=== PATIENT | male | born 1980 | race Caucasian/White ===

== ENCOUNTER → 2022-03-23 | Outpatient (CLI) | payer SELFPAY | END | disposition home or self-care (01) | DX: Z00.00 Encounter for general adult medical examination without abnormal findings (principal); R53.83 Other fatigue ==

== ENCOUNTER 2023-06-16 16:41 | Observation (INO) | payer MEDICARE ==
[~2023-06-16] VITALS: Ht 170.2 cm; Wt 226.8 kg
[2023-06-16 18:42] LABS: BASOPHILS ABSOLUTE AUTO 0.06 K/mm3 (0.00-0.23); BASOPHILS PERCENT AUTO 0 % (0-2); EOSINOPHILS ABSOLUTE AUTO 0.16 K/mm3 (0.00-0.68); EOSINOPHILS PERCENT AUTO 1 % (0-6); Hemoglobin 14.2 g/dL (13.5-17.5); IMMATURE GRAN PERCENT AUTO 1 % (0-1); LYMPHOCYTES ABSOLUTE AUTO 1.68 K/mm3 (0.84-5.20); LYMPHOCYTES PERCENT AUTO 11 % (21-46); MONOCYTES ABSOLUTE AUTO 0.86 K/mm3 (0.16-1.47); MONOCYTES PERCENT AUTO 6 % (4-13); Mean Corpuscular HGB 26.9 pg (26.0-34.0); Mean Corpuscular HGB Conc 32.3 g/dL (31.5-36.5); Mean Corpuscular Volume 84 fL (80-100); Mean Platelet Volume 9.5 fL (9.1-12.4); NEUTROPHILS ABSOLUTE AUTO 12.13 K/mm3 (1.96-9.15); NEUTROPHILS PERCENT AUTO 81 % (41-73); Platelet Count 365 K/mm3 (150-400); RDW Coefficient Variation 13.5 % (11.7-14.2); RDW Standard Deviation 41.6 fL (35.1-46.3); Red Blood Cell Count 5.27 M/mm3 (4.30-5.90); White Blood Cell Count 14.99 K/mm3 (4.00-11.30)
[2023-06-16 18:50] LABS: Source, Urine Clean Catch
[2023-06-16 18:55] LABS: Appearance, Urine Clear (Clear); Bilirubin, Urine Neg (Neg); Blood, Urine Neg (Neg); Color, Urine Yellow (P-Yellow); Glucose Qualitative, Urine Neg (Neg); Ketones, Urine Neg (Neg); Leukocyte Esterase, Urine Neg (Neg); Nitrite, Urine Neg (Neg); Protein, Urine Neg (Neg); Specific Gravity, Urine 1.015 (1.003-1.022); Urobilinogen, Urine NORM (Normal)
[2023-06-16 19:07] LABS: U Amphetamine Screen Not Detected; U Barbituate Screen Not Detected; U Benzodiazapine Screen Not Detected; U Buprenorphine Screen Not Detected; U Cannabinoids Screen Not Detected; U Cocaine Screen Not Detected; U Methadone Screen Not Detected; U Methamphetamine Screen Not Detected; U Opiates Screen Not Detected; U Oxycodone Screen Not Detected; U Phencyclidine Screen Not Detected
[2023-06-16 19:11] LABS: Ethanol (Alcohol), Blood, Med 3 mg/dL; Thyroxine (T4) 8.6 ug/dL (4.5-12.1)
[2023-06-16 19:12] LABS: Alanine Aminotransfer (ALT/SGP 37 U/L (12-78); Albumin, Blood 3.1 g/dL (3.4-5.0); Albumin/Globulin Ratio 0.6 (0.8-1.8); Alk Phos 122 U/L (50-136); Anion Gap 1 mmol/L (6-16); Aspartate Aminotrans (AST/SGOT 22 U/L (12-37); Bilirubin, Total 0.2 mg/dL (0.1-1.0); Blood Urea Nitrogen 13 mg/dL (8-24); Bun/Creatinine Ratio 14.9 (12.0-20.0); CO2, Blood 29 mmol/L (21-32); Calcium, Blood 9.3 mg/dL (8.5-10.1); Chloride, Blood 105 mmol/L (98-108); Creatinine, Blood 0.87 mg/dL (0.60-1.20); Globulin, Blood 5.1 g/dL (2.2-4.0); Glomerular Filtration Rate 109 (60-); Glucose, Blood 186 mg/dL (70-99); Potassium, Blood 4.5 mmol/L (3.5-5.5); Salicylate <1.7 mg/dL (2.8-20.0); Sodium, Blood 135 mmol/L (136-145); Total Protein, Blood 8.2 g/dL (6.4-8.2)
[2023-06-16 19:18] LABS: Acetaminophen, Random <2.0 ug/mL (10.0-30.0)
[2023-06-16] MEDS ORDERED: [UNRECOGNIZED DRUG - CODE] PO (20:46)
[2023-06-16] MEDS ORDERED: QUETIAPINE FUM10011 PO (20:46)
[2023-06-16] MEDS ORDERED: FUROSEMIDE20 MG PO (20:46)
[2023-06-16] MEDS ORDERED: CLONAZEPAM1 MG PO (20:47)
[2023-06-16] MEDS ORDERED: Venlafaxine HCl75 M1 PO (20:47)
[2023-06-16] MEDS ORDERED: OMEPRAZOLE MAGN20 M1 PO (20:47)
[2023-06-16] MEDS ORDERED: METFORMIN HCL500 M3 PO (20:48)
[2023-06-16] MEDS ORDERED: LISI20 PO (20:48)
[2023-06-16] MEDS ORDERED: HYDCHL25 PO (20:48)
[2023-06-16] MEDS ORDERED: Inderal40 MG PO (20:49)
[2023-06-16] MEDS ORDERED: Ativan1 MG PO (21:08)
[2023-06-16] MEDS ORDERED: CLON.2 PO (21:08)
[2023-06-16] MEDS ORDERED: MetFORMIN HCl 500 mg PO ONE (21:35)
[2023-06-16] MEDS ORDERED: Omeprazole 20 MG CapCR PO ONE (21:35)
[2023-06-16] MEDS ORDERED: QUEtiapine Fumarate 100 MG Tab PO ONE (21:35)
[2023-06-16] MEDS ORDERED: Propranolol HCL 20 MG TAB PO ONE (21:35)
[2023-06-16] MEDS ORDERED: OXcarbazepine 300 MG Tab PO ONE (21:35)
[2023-06-16] MEDS ORDERED: CloNIDine 0.1 MG Tab PO ONE (21:35)
[2023-06-17] MEDS ORDERED: CloNIDine 0.1 MG Tab PO PRN (11:50)
[2023-06-17] MEDS ORDERED: ClonazePAM 0.5 MG Tab PO PRN (11:55)
[2023-06-17] MEDS ORDERED: OXcarbazepine 300 MG Tab PO SCH (12:00)
[2023-06-17] MEDS ORDERED: MetFORMIN HCl 500 mg PO SCH (12:00)
[2023-06-17] MEDS ORDERED: Lisinopril 20 MG Tab PO SCH (12:00)
[2023-06-17 16:11] LABS: Cholesterol 219 mg/dL (50-200); HDL Cholesterol 55 mg/dL (>39); LDL/HDL RATIO 2.5; Low Density Lipoprotein Chol 138 mg/dL (0-110); Triglycerides 130 mg/dL (30-160); Very Low Density Lipoprot Chol 26 mg/dL (6-32)
[2023-06-17] MEDS ORDERED: Omeprazole 20 MG CapCR PO SCH (16:30)
[2023-06-17] MEDS ORDERED: QUEtiapine Fumarate 100 MG Tab PO SCH (21:00)
[2023-06-17 23:16] VITALS: BP 147/77
[2023-06-18] MEDS ORDERED: Ondansetron 8 MG SoluTab SL ONE (07:30)
[2023-06-18] MEDS ORDERED: Lisinopril 20 MG Tab PO SCH (09:00)
[2023-06-18] MEDS ORDERED: Furosemide 20 MG Tab PO SCH (09:00)
[2023-06-18] MEDS ORDERED: Venlafaxine HCl 75 MG CapCR PO SCH ×2 (09:00)
== END 2023-06-18 10:46 | disposition home or self-care (01) ==
LOC: ER 16:41 → EOR 16:42
PROVIDERS: Physician Assistant; Student in an Organized Health Care Education/Training Program; ADMIT Student in an Organized Health Care Education/Training Program
DX: F33.2 Major depressive disorder, recurrent severe without psychotic features (principal); F60.3 Borderline personality disorder; Z88.0 Allergy status to penicillin; E10.9 Type 1 diabetes mellitus without complications
CPT/HCPCS: 36415; 80053; 80061; 81003; 84436; 85025; 93005; 93010; 94660; 99285-25; A9270; G0378; G0480

== ENCOUNTER 2024-11-16 00:13 | Inpatient (IN) | payer MEDICARE ==
[2024-11-16] VITALS (60 sets, daily range): BP systolic 130–181; BP diastolic 67–110
[~2024-11-16] VITALS: Ht 175.3 cm; Wt 203.0 kg
[~2024-11-16 00:13] MED LIST: Ativan1 MG PO; CLON.2 PO; CLONAZEPAM1 MG PO; FUROSEMIDE20 MG PO; HYDCHL25 PO; Inderal40 MG PO; LISI20 PO; METFORMIN HCL500 M3 PO; OMEPRAZOLE MAGN20 M1 PO; QUETIAPINE FUM10011 PO; Venlafaxine HCl75 M1 PO; [UNRECOGNIZED DRUG - CODE] PO
[2024-11-16] MEDS ORDERED: NS 1,000 ML IV SCH (00:25)
[2024-11-16 00:36] LABS: BASOPHILS ABSOLUTE AUTO 0.07 K/mm3 (0.00-0.23); BASOPHILS PERCENT AUTO 1 % (0-2); EOSINOPHILS ABSOLUTE AUTO 0.19 K/mm3 (0.00-0.68); EOSINOPHILS PERCENT AUTO 1 % (0-6); Hematocrit 41.2 % (37.0-53.0); Hemoglobin 13.3 g/dL (13.5-17.5); IMMATURE GRAN ABSOLUTE AUTO 0.05 K/mm3 (0.00-0.10); IMMATURE GRAN PERCENT AUTO 0 % (0-1); LYMPHOCYTES ABSOLUTE AUTO 3.18 K/mm3 (0.84-5.20); LYMPHOCYTES PERCENT AUTO 22 % (21-46); MONOCYTES ABSOLUTE AUTO 1.14 K/mm3 (0.16-1.47); MONOCYTES PERCENT AUTO 8 % (4-13); Mean Corpuscular HGB Conc 32.3 g/dL (31.5-36.5); Mean Corpuscular Volume 85 fL (80-100); NEUTROPHILS ABSOLUTE AUTO 9.85 K/mm3 (1.96-9.15); NEUTROPHILS PERCENT AUTO 68 % (41-73); NRBC ABSOLUTE 0.00 K/mm3 (0.00-0.02); NRBC Auto 0.0 /100 WBC (0.0-0.2); Platelet Count 317 K/mm3 (150-400); RDW Coefficient Variation 13.0 % (11.7-14.2); RDW Standard Deviation 40.3 fL (35.1-46.3)
[2024-11-16 00:58] LABS: Ethanol (Alcohol), Blood, Med <3 mg/dL; Salicylate <1.7 mg/dL (2.8-20.0)
[2024-11-16 01:01] LABS: Alanine Aminotransfer (ALT/SGP 25 U/L (12-78); Albumin, Blood 3.1 g/dL (3.4-5.0); Albumin/Globulin Ratio 0.7 (0.8-1.8); Anion Gap 8 mmol/L (3-11); Aspartate Aminotrans (AST/SGOT 14 U/L (12-37); Bilirubin, Total 0.2 mg/dL (0.1-1.0); Blood Urea Nitrogen 12 mg/dL (8-24); CO2, Blood 28 mmol/L (21-32); Calcium, Blood 8.7 mg/dL (8.5-10.1); Chloride, Blood 105 mmol/L (98-108); Creatinine, Blood 0.83 mg/dL (0.60-1.20); Globulin, Blood 4.3 g/dL (2.2-4.0); Glucose, Blood 175 mg/dL (70-99); Potassium, Blood 4.3 mmol/L (3.5-5.5); Sodium, Blood 137 mmol/L (136-145); Total Protein, Blood 7.4 g/dL (6.4-8.2)
[2024-11-16 01:02] LABS: Acetaminophen, Random <2.0 ug/mL (10.0-30.0)
[2024-11-16] MEDS ORDERED: FentaNYL Citrate 50 MCG/ML 2 ML Injection IV SCH (01:15)
[2024-11-16] MEDS ORDERED: Midazolam HCL 50 MG in NS 40 ML IV PRN (01:20)
[2024-11-16] MEDS ORDERED: Ipratropium/Albuterol SulF 2.5-0.5MG/3 ML Amp INH PRN (02:20)
[2024-11-16 02:25] LABS: Source, Urine Clean Catch
[2024-11-16] MEDS ORDERED: FentaNYL Citrate 50 MCG/ML 2 ML Injection IV PRN (02:25)
[2024-11-16 02:35] LABS: Glucose Qualitative, Urine Neg (Neg); Ketones, Urine 1+ (Neg); Leukocyte Esterase, Urine Neg (Neg); Protein, Urine 2+ (Neg); Specific Gravity, Urine 1.020 (1.003-1.022); Urobilinogen, Urine NORM (Normal)
[2024-11-16 02:50] LABS: U Amphetamine Screen Not Detected; U Barbituate Screen Not Detected; U Benzodiazapine Screen DETECTED; U Buprenorphine Screen Not Detected; U Cannabinoids Screen Not Detected; U Cocaine Screen Not Detected; U Methadone Screen Not Detected; U Methamphetamine Screen Not Detected; U Opiates Screen Not Detected; U Oxycodone Screen Not Detected; U Phencyclidine Screen Not Detected
[2024-11-16 02:53] LABS: Bilirubin, Urine 2+ (Neg)
[2024-11-16 02:54] LABS: Color, Urine Yellow (P-Yellow); White Blood Cells, Urine 0-2 /hpf (0-5)
[2024-11-16 03:02] LABS: Calcium, Ionized (POC) 1.25 mmol/L (1.10-1.46); Chloride (POC) 101 mmol/L (98-108); Creatinine (POC) 0.9 mg/dL (0.8-1.3); Glucose (ISTAT POC) 176 mg/dL (70-99); Hematocrit (POC) 42.0 % (41.0-53.0); Hemoglobin (POC) 14.3 g/dL (13.5-17.5); Potassium (POC) 4.3 mmol/L (3.5-5.5); Sodium (POC) 139 mmol/L (135-148); Total CO2 (POC) 27 mmol/L (21-32)
[2024-11-16 03:04] LABS: pH Blood Venous 7.40 (7.34-7.37)
[2024-11-16 05:28] LABS: BASOPHILS ABSOLUTE AUTO 0.06 K/mm3 (0.00-0.23); BASOPHILS PERCENT AUTO 0 % (0-2); EOSINOPHILS ABSOLUTE AUTO 0.08 K/mm3 (0.00-0.68); EOSINOPHILS PERCENT AUTO 1 % (0-6); Hematocrit 40.7 % (37.0-53.0); Hemoglobin 13.5 g/dL (13.5-17.5); IMMATURE GRAN ABSOLUTE AUTO 0.03 K/mm3 (0.00-0.10); IMMATURE GRAN PERCENT AUTO 0 % (0-1); LYMPHOCYTES ABSOLUTE AUTO 2.42 K/mm3 (0.84-5.20); LYMPHOCYTES PERCENT AUTO 17 % (21-46); MONOCYTES ABSOLUTE AUTO 0.94 K/mm3 (0.16-1.47); MONOCYTES PERCENT AUTO 7 % (4-13); Mean Corpuscular HGB Conc 33.2 g/dL (31.5-36.5); Mean Corpuscular Volume 83 fL (80-100); NEUTROPHILS ABSOLUTE AUTO 10.73 K/mm3 (1.96-9.15); NEUTROPHILS PERCENT AUTO 75 % (41-73); NRBC ABSOLUTE 0.00 K/mm3 (0.00-0.02); NRBC Auto 0.0 /100 WBC (0.0-0.2); Platelet Count 335 K/mm3 (150-400); RDW Coefficient Variation 13.0 % (11.7-14.2); RDW Standard Deviation 39.9 fL (35.1-46.3)
--- NOTE | 2024-11-16 05:57 | NUR ---
SPOKE WITH KEVIN WITH POISON CONTROL AND UPDATED HER.
[2024-11-16 05:59] LABS: Alanine Aminotransfer (ALT/SGP 41.0 U/L (12-78); Albumin, Blood 3.1 g/dL (3.4-5.0); Albumin/Globulin Ratio 0.7 (0.8-1.8); Anion Gap 7.0 mmol/L (3-11); Aspartate Aminotrans (AST/SGOT 33.0 U/L (12-37); Bilirubin, Total 0.5 mg/dL (0.1-1.0); Blood Urea Nitrogen 10.0 mg/dL (8-24); CO2, Blood 30.0 mmol/L (21-32); Calcium, Blood 8.6 mg/dL (8.5-10.1); Chloride, Blood 104.0 mmol/L (98-108); Creatinine, Blood 0.78 mg/dL (0.60-1.20); Globulin, Blood 4.3 g/dL (2.2-4.0); Glucose, Blood 164.0 mg/dL (70-99); Magnesium, Blood 1.8 mg/dL (1.6-2.4); Potassium, Blood 4.2 mmol/L (3.5-5.5); Sodium, Blood 137.0 mmol/L (136-145); Total Protein, Blood 7.4 g/dL (6.4-8.2)
[2024-11-16] MEDS ORDERED: Pantoprazole Sodium 40 MG Injection IV SCH (06:00)
--- NOTE | 2024-11-16 06:17 | NUR ---
SHIFT SUMMARY: PT ARRIVED FROM THE ED INTUBATED. WHEN HE ARRIVED HE WAS AGITATED AND ALERT. HE WAS TREATED FOR PAIN AND SEDATED. HE HAD A CHISHOLM IN PLACE, DRAINING TO GRAVITY. PT REMAINED IN A SINUS RHYTHM IN 60S-70S, BP STABLE.
[2024-11-16] MEDS ORDERED: Cetylpyridinium Chloride 1 EA MISC MT SCH (08:00)
[2024-11-16] MEDS ORDERED: Enoxaparin 40 MG/0.4 ML SYR SC SCH (09:00)
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
[2024-11-16] MEDS ORDERED: Hydrogen Peroxide 1.5 % Solution MT SCH (12:00)
[2024-11-16] MEDS ORDERED: Etomidate 2MG / ML 10ML Vial IV ONE (12:02)
[2024-11-16] MEDS ORDERED: Rocuronium Bromide 10 MG/ML 5ML Injection IV ONE (12:02)
[2024-11-16] MEDS ORDERED: Midazolam HCl 1MG / ML 2ML Vial IV ONE (12:02)
[2024-11-16] MEDS ORDERED: ZESTRIL40 MG PO (12:53)
[2024-11-16] MEDS ORDERED: OMEPRAZOLE20 M2 PO (12:56)
[2024-11-16] MEDS ORDERED: HydrALAZINE HCl 20 MG / ML 1ML Vial IV PRN (13:00)
--- NOTE | 2024-11-16 17:02 | NUR ---
END OF SHIFT NOTE: PT HAS REMAINED INTUBATED & SEDATED THIS SHIFT. PROPOFOL GTT FOR SEDATION, SEE CC FLOWSHEET FOR TITRATIONS. RASS -2 THIS AM & EARLY PM ON 10MCG/KG/MIN; AT APPROX 1430, RASS +3 & PT ATTEMPTING TO SELF EXTUBATE, THRASHING IN BED. PROPOFOL GTT INCREASED TO 30MCG/KG/MIN & FENTANYL IVP FOR AGITATION PER EMAR. RASS -3 AT THIS TIME. HR 60-70'S, SINUS RHYTHM ON MONITOR. SBP UP TO 180'S, HYDRALAZINE IVP ADMINISTERED PER EMAR. SPO2 >90% ON VENT; SETTINGS AC/VC 18/480/5/30%. AFEBRILE. CHISHOLM CATH REMAINS PATENT & DRAINING URINE TO GRAVITY; 610ML OUTPUT OF TIME OF THIS NOTE. NO BM'S. PER DR. SUMNER, NO OGT AT THIS TIME. PT TRANSFERRED TO BARIATRIC BED THIS AFTERNOON, REPOSITIONED Q2HRS & PRN. Q4 ORAL CARE TO SUCTION. PG TO ZHENG, PIV TO LAC, PIV TO L HAND. FAMILY AT BEDSIDE, UPDATED ON PLAN OF CARE.
[2024-11-17] VITALS (43 sets, daily range): BP systolic 140–183; BP diastolic 75–150
--- NOTE | 2024-11-17 05:52 | NUR ---
SHIFT SUMMARY: MINIMAL CHANGES OVERNIGHT. PT HYPERTENSIVE, BUT NEVER HIGH ENOUGH FOR ADDITIONAL DOSE OF HYDRALAZINE. REMAINS IN A SINUS RHYTHM 60S-70S. CHISHOLM PATENT WITH ADEQUATE URINE OUTPUT. PT REMAINS SEDATE WITH PROPOFOL. HE HAS REQUIRED AN INCREASE IN PEEP AND FIO2 TO MAINTIAN SPO2 >90%
--- NOTE | 2024-11-17 09:36 | NUR ---
AM NOTE: THIS RN ASSUMED CARE OF PT AT APPROX 0700, BEDSIDE REPORT FROM NOC RN. PT INTUBATED & SEDATED W/ PROPOFOL GTT. RASS -3 ON 25MCG/KG/MIN, TITRATED TO 20MCG/KG/MIN W/ RASS-2. PT ABLE TO FOLLOW SOME COMMANDS, OPENS EYES. PUPILS EQUAL & REACTIVE, GAG PRESENT. HR 70-80'S, SINUS RHYTHM W/ 1ST DEG AVB ON MONITOR. SBP 160-170'S, MAP >65. SPO2 >90% ON VENT, SETTINGS AC/VC 18/480/10/35%. AFEBRILE. CHISHOLM CATH IN PLACE DRAINING YELLOW URINE TO GRAVITY. Q30MIN REPOSITIONING W/ BARIATRIC AIR BED. SWR IN PLACE TO BUE FOR PT SAFETY. PT'S MOTHER, CHANCE, UPDATED ON PLAN OF CARE VIA PHONE THIS AM. CHANCE STATES SHE PLANS TO COME VISIT EAMON SHORTLY.
[2024-11-17] MEDS ORDERED: CefTRIAXone Sodium 1,000 MG in NS 100 ML IV SCH (10:59)
[2024-11-17] MEDS ORDERED: NS 250 ML IV PRN (11:10)
[2024-11-17] MEDS ORDERED: Haloperidol Lactate Inj. 5 MG/ML Injection IV PRN (14:50)
--- NOTE | 2024-11-17 15:44 | NUR ---
UPDATE: THIS RN AT PT'S BEDSIDE THIS AFTERNOON DUE TO VENT ALARMS. PT AGITATED, PULLING AT SOFT WRIST RESTRAINTS & ATTEMPTING TO BEND NECK TO HAND TO PULL OUT ETT. SWING RIDE OPERATOR TO BEDSIDE. CALL PLACED TO DR. SUMNER, PROPOFOL GTT RESTARTED. PT REMAINS AGITATED, PULLING AT RESTRAINTS, THRASHING IN BED. RASS +3/+4. DR. SUMNER W/ ORDERS TO EXTUBATE. SEDATION OFF, PT EXTUBATED BY RT AT 1447. RESTRAINTS DISCONTINUED AT 1450. PT TRANSITIONED TO HFNC THEN TO BIPAP. PT UNABLE TO TOLERATE BIPAP, PULLING IT OFF HIS FACE AND SAYING "FUCK YOU" REPEATEDLY TO RT AT BEDSIDE. EDUCATION PROVIDED, PT CONTINUES TO REMAIN NONCOMPLIANT W/ BIPAP. TRANSITIONED BACK TO 11L HFNC W/ SPO2 90-92%. OTHER VSS ON MONITOR. PSYCH CONSULTED THIS AFTERNOON & 1:1 SITTER AT BEDSIDE. ROOM MITIGATED PER HIGH RISK SI PRECAUTIONS. THIS RN SPOKE W/ PT REGARDING CURRENT SITUATION. PT STATES THAT HE DOES REMEMBER TAKING PILLS AT HOME IN AN ATTEMPT TO KILL HIMSELF. WHEN ASKED IF HE HAS A DESIRE TO HARM HIMSELF AT THIS TIME, PT STATES "I'M NOT SURE." PT AGREEABLE TO CARE AT THIS TIME, EXPRESSES DESIRE FOR FAMILY VISIT. THIS RN SPOKE W/ PT'S MOTHER, CHANCE, TO PROVIDE AN UPDATE. CHANCE STATES THAT SHE PLANS TO COME VISIT THIS AFTERNOON IN ADDITION TO SOME OTHER FAMILY MEMBERS. PT IS AGREEABLE TO THIS. PT DENIES PAIN OTHER THAN THROAT DISCOMFORT FOLLOWING EXTUBATION. EXPRESSING DESIRE FOR PO INTAKE; MOUTH MOISTURIZER PROVIDED.
--- NOTE | 2024-11-17 18:18 | NUR ---
END OF SHIFT NOTE: SEE PREVIOUS NOTES FOR SHIFT UPDATES. PT A/OX3-4 AT THIS TIME. VOICE IS SOFT, BUT PT IS ABLE TO COMMUNICATE NEEDS W/ STAFF. VSS POST-EXTUBATION. HR 80'S, SINUS RHYTHM ON MONITOR. SBP 140-170'S, UP TO 180'S; 1 DOSE OF PRN HYDRALAZINE THIS AFTERNOON. SPO2 >88% ON 7L VIA NC. AFEBRILE. PT REQUESTING CPAP FOR NOC, PT'S MOM TO BRING IN HOME CPAP TOMORROW. CHISHOLM CATH REMAINS PATENT, DRAINING FUAD URINE TO GRAVITY; 740ML OUTPUT. NO BM'S. PT TOLERATING ICE CHIPS AT THIS TIME. PG TO ZHENG & PIV X2 SALINE LOCKED. PT ABLE TO ASSIST W/ REPOSITIONING IN BED THIS EVENING, AIRBED USED FOR ASSISTANCE. 1:1 SITTER REMAINS AT BEDSIDE.
--- NOTE | 2024-11-17 21:39 | NUR ---
UPDATE 2100 PT RESTLESS AND AGITATED, PULLING OFF CPAP MASK AND PULLING ON TELEMETRY LINES, MEDICATED WITH HALDOL 5 MG IVP PER EMAR 2119 PT CONTINUES TO REMOVE MASK AND IS AGITATED ABOUT HUMIDIFIED AIR NOT BEING HOT AND STATES " I CANT BREATHE IF THE IS NOT HOT" PULLING OFF BP CUFF AND TELEMETRY LINES, PRECEDEX GTT STARTED PER EMAR
--- NOTE | 2024-11-17 23:40 | NUR ---
UPDATE PRECEDEX GTT INFUSING AND TITRATED PER EMAR FOR RASS -1/-2, RESP 30-40s ON 7 LPM HFNC, PLACED PT ON CPAP AT 2315 DUE TO RESP 44-50 RPM , PT LEFT MASK ON FOR APPROX 10 MINUTES AND THEN REMOVED, ATTEMPT TO REPLACE PT BECAME AGITATED AND PUSHING NURSES HANDS AWAY, REFUSES MASK STATING " I CANT BREATHE WITH THAT. ITS NOT HOT" RT NOTIFIED AND STATES IT HAS HUMIDIFIED AIR BLED IN, PT STATES " ITS NOT HOT ENOUGH" PT PLACED BACK ON 7 LPM HFNC AND PRECEDEX GTT TITRATED PER EMAR
[2024-11-18] VITALS (28 sets, daily range): BP systolic 113–178; BP diastolic 59–111
[2024-11-18 03:59] LABS: BASOPHILS ABSOLUTE AUTO 0.05 K/mm3 (0.00-0.23); BASOPHILS PERCENT AUTO 0 % (0-2); EOSINOPHILS ABSOLUTE AUTO 0.13 K/mm3 (0.00-0.68); EOSINOPHILS PERCENT AUTO 1 % (0-6); Hematocrit 42.1 % (37.0-53.0); Hemoglobin 14.1 g/dL (13.5-17.5); IMMATURE GRAN ABSOLUTE AUTO 0.10 K/mm3 (0.00-0.10); IMMATURE GRAN PERCENT AUTO 1 % (0-1); LYMPHOCYTES ABSOLUTE AUTO 2.21 K/mm3 (0.84-5.20); LYMPHOCYTES PERCENT AUTO 16 % (21-46); MONOCYTES ABSOLUTE AUTO 1.54 K/mm3 (0.16-1.47); MONOCYTES PERCENT AUTO 11 % (4-13); Mean Corpuscular HGB Conc 33.5 g/dL (31.5-36.5); Mean Corpuscular Volume 82 fL (80-100); NEUTROPHILS ABSOLUTE AUTO 10.04 K/mm3 (1.96-9.15); NEUTROPHILS PERCENT AUTO 71 % (41-73); NRBC ABSOLUTE 0.00 K/mm3 (0.00-0.02); NRBC Auto 0.0 /100 WBC (0.0-0.2); Platelet Count 294 K/mm3 (150-400); RDW Coefficient Variation 12.5 % (11.7-14.2); RDW Standard Deviation 37.5 fL (35.1-46.3)
[2024-11-18 04:33] LABS: Albumin, Blood 2.6 g/dL (3.4-5.0); Anion Gap 7 mmol/L (3-11); Blood Urea Nitrogen 11 mg/dL (8-24); CO2, Blood 29 mmol/L (21-32); Calcium, Blood 8.1 mg/dL (8.5-10.1); Chloride, Blood 103 mmol/L (98-108); Creatinine, Blood 0.84 mg/dL (0.60-1.20); Glucose, Blood 149 mg/dL (70-99); Phosphorus, Blood 3.2 mg/dL (2.5-4.9); Potassium, Blood 3.9 mmol/L (3.5-5.5); Sodium, Blood 135 mmol/L (136-145)
--- NOTE | 2024-11-18 06:07 | NUR ---
SHIFT SUMMARY PT RESTLESS AND ANXIOUS BEGINNING OF SHIFT, ORIENTED X4, FOLLOWS COMMANDS HOWEVER FORGETFUL AND PULLING ON LINES, REMOVING TELEMETRY AND O2, HALDOL GIVEN IVP X1 PER EMAR AND PRECEDEX GTT STARTED PER EMAR, PT REQUESTED CPAP TO SLEEP, PLACED ON CPAP BY RT AND PT REMOVED AFTER 10 MINUTES, ATTEMPTED TO PUT BACK ON CPAP AFTER PRECEDEX GTT STARTED AND NOTED RESP 40-50s SHALLOW, PT TOLERATED FOR ON ONLYY 10 MINUTES AND REMOVED STATING " I CANT BREATHE WITH THAT" AND REFUSED TO HAVE CPAP PLACED BACK ON, PRECEDEX GTT TITRATED FOR RASS -1/-2, PLACED ON 7 LPM HFNC WITH SPO2 >90%, RESP REMAIN 30-40s, SBP 140-160s, TMAX 100.1f, SR 70-80s, CHISHOLM PATENT AND DRAINING TO GRAVITY, 1:1 SITTER AT BEDSIDE FOR SI, NO DISTRESS NOTED, SIDE RAILS UP X3, CALL LIGHT IN REACH
--- NOTE | 2024-11-18 08:17 | NUR ---
TITRATING DOWN PRECEDEX, PT ANSWERS QUESTIONS, TAKES IN ICE CHIPS. DENIES S/I AT THIS TIME.
--- NOTE | 2024-11-18 10:25 | NUR ---
PT UP TO CHAIR WITH LIFT, TOLERATED WELL. ENGAGING WITH STAFF, SMILE ON OCC. UNDERSTANDS HE HAS BEEN DIAGNOSED WITH PNEUMONIA, NEEDS TO WORK ON DEEP BREATHING AND GOOD COUGH. REMAINS ON 5L/NC. COOPERATIVE WITH CARE AT THIS TIME.
--- NOTE | 2024-11-18 11:30 | NUR ---
REPORTED BY FREDIS THAT WHILE MOM WAS VISITING THAT EAMON WAS ASKING MOM TO "END HIM". MOM LEFT AROUND 1119. WHEN ASKED IF HE FELT LIKE HURTING HIMSELF, HE DENIED IT.
[2024-11-18] MEDS ORDERED: TRAZ150T57 PO (12:19)
--- NOTE | 2024-11-18 14:43 | NUR ---
PT HAS BEEN ASKED REPEATEDLY THROUGHOUT THE DAY IF HE HAS FEELINGS OF KILLING HIMSELF. HE SAID THAT HE DOES NOT AND THAT HE IS BEING HONEST. DR. DIAMOND CAME BY, PT ANSWERED ME WHEN HE WAS INTRODUCED BUT FELT HE WAS TOO SLEEPY TO COMPLY WITH QUESTIONS. HE HAS BEEN VERY SLEEPY BUT HE WILL ROUSE TO VOICE AND LIGHT TOUCH. HE IS SWALLOWING WELL, ABLE TO HAVE A STRONG COUGH AND IT IS PRODUCTIVE OF FOOD AND BEVERAGE COLORED EXPECTORANT. [facility] STATED THAT HE HAS EVIDENCE OF INFECTION IN THE LEFT SIDE OF HIS MOUTH. THAT HE WAS HOLDING ONTO SOME FOOD FROM LUNCH WELL. HE HAS BEEN COOPERATIVE WITH CARE AND HAS NOT SHOWN ANY AGGRESSION TOWARDS STAFF TODAY.
--- NOTE | 2024-11-18 22:20 | NUR ---
PATIENT TRANSFERED FROM ICU 12 TO ROOM 346. REMAINS 1:1 WITH RN SITTER. CARE PLAN ONGOING.
[2024-11-19] VITALS: BP 111/54
[2024-11-19] MEDS ORDERED: Miconazole Nitrate 2% 85 GM PWD TOP PRN (03:45)
[2024-11-19 06:30] VITALS: BP 129/73
[2024-11-19 07:21] VITALS: BP 106/92
[2024-11-19] MEDS ORDERED: Lactobacil 2-S.Thermo-Bifido 1 1 Cap PO SCH (09:45)
--- NOTE | 2024-11-19 12:13 | NUR ---
Upon receiving a referral for spiritual care, I visited the patient. He tells me about the events that led to his admission to the hospital, his family unit complications and his trouble processing angry emotions. We explore ideas for grounding and finding the value of self. One of path was prayer and meditation, which I provided prayer for him and a model of what could be said as a path to peace and reaching center. The patient responded well and voiced appreciation for the spiritual care visit, showing mild signs of increased peace.
[2024-11-19 15:20] VITALS: BP 123/55
--- NOTE | 2024-11-19 17:30 | NUR ---
SUMMARY PT APPEARED DROWSY AT START OF SHIFT BUT A/OX4. PENDING PSYCHE EVAL BY DR. DIAMOND. REMAINS WITH 1:1 SITTER. PT WAS REALLY WANTING TO GET UP OOB TO COMMODE THIS AFTERNOON. PT NORMALLY IND AT HOME. PENDING PT EVAL BUT PATIENT WAS ABLE TO IND PULL HIMSELF UP IN BED. MYSELF AND GLORIA REEDER ASSISTED PT TO EOB WITH MINIMAL ASSISTANCE, THEN ASSISTED TO COMMODE BUT HE ONLY PASSED GAS. PRN IMMODIUM WAS GIVEN THIS AM FOR 3 LOOSE BOWEL MOVEMENTS OVERNIGHT AND 1 LOOSE ONE THIS AM. PT PLEASANT AND COOPERATIVE AND ATTEMPTING TO JOKE WITH STAFF.
[2024-11-19 20:02] VITALS: BP 135/63
[2024-11-20 03:56] VITALS: BP 122/69
[2024-11-20 05:17] LABS: Hematocrit 36.9 % (37.0-53.0); Hemoglobin 12.2 g/dL (13.5-17.5); Mean Corpuscular HGB Conc 33.1 g/dL (31.5-36.5); Mean Corpuscular Volume 83 fL (80-100); NRBC ABSOLUTE 0.00 K/mm3 (0.00-0.02); NRBC Auto 0.0 /100 WBC (0.0-0.2); Platelet Count 312 K/mm3 (150-400); RDW Coefficient Variation 12.7 % (11.7-14.2); RDW Standard Deviation 38.4 fL (35.1-46.3)
--- NOTE | 2024-11-20 05:28 | NUR ---
SHIFT SUMMARY PATIENT IS ALERT AND ORIENTED. PATIENT HAS HAD NO ACUTE EVENTS THIS SHIFT. VITAL SIGNS REVIEWED. PATIENT HAS BEEN PLEASENT AND COOPERATIVE WITH CARE THIS SHIFT. PATIENT HAS HAD NO COMPLAINTS OF SOB, NAUSEA, VOMITTING OR PAIN THIS SHIFT. PATIENT HAS HAD SITTER IN PLACE ALL SHIFT. BED IN LOCKED AND LOWEST POSITION. CALL LIGHT IN PLACE.
[2024-11-20 07:15] VITALS: BP 133/72
[2024-11-20 15:34] VITALS: BP 166/82
[2024-11-20] MEDS ORDERED: Ondansetron HCl 2 MG / ML 2ML Vial IV PRN (16:10)
[2024-11-20] MEDS ORDERED: HydrALAZINE HCl 20 MG / ML 1ML Vial IV PRN (16:10)
[2024-11-20 19:47] VITALS: BP 141/76
--- NOTE | 2024-11-20 20:03 | NUR ---
SUMMARY PT REMAINS ON 1:[address] DIAMOND RECOMMENDING INPT PSYCHE. PT AROND NOON AFTER LUNCH HAD SOME GI UPSET AND VOMITED SMALL AMOUNT, BLOOD PRESSURE WAS ALSO SLIGHTLY ELEVATED SYST 166. DR. JACKSON NOTIFIED AND ORDERED ZOFRAN FOR NAUSEA AND DECREASED THE PARAMETER FOR HYDRALAZINE FROM 180 TO 160. REVIEWED HOME MED REC WITH PATIENT AND HE TAKES B/P MEDS AND PRILIOSEC. DR. JACKSON NOTIFIED AND RESTARTED HOME LISINOPRIL, PROPRANALOL, AND OMEPRAZOLE. PT UP 1 ASSIST TO BATHROOM WIH WALKER. SOB WITH EXERTION BUT HAS BEEN WEANED OFF OXYGEN. CONTINUOUS PULSE OX IN PLACE. HOME CPAP AT NIGHT.
[2024-11-21 02:48] VITALS: BP 162/87
--- NOTE | 2024-11-21 03:34 | NUR ---
SHIFT SUMMARY PATIENT HAS HAD A HARD TIME GETTING COMFORTABLE TONIGHT. MEDICATED WITH FENTANYL X 1 ON THIS SHIFT. MD CALLED FOR PATIENTS HOME DOSE OF TRAZADONE. IT HAS BEEN ORDERED AND ADMINISTERED. SITTER REMAINS AT THE BEDSIDE. SAFETY PRECAUTIONS ARE BEING MAINTAINED.
[2024-11-21 07:23] VITALS: BP 162/83
[2024-11-21 15:53] VITALS: BP 167/88
--- NOTE | 2024-11-21 17:45 | NUR ---
SHIFT SUMMARY PATIENT ALERT AND INTERACTIVE. PATIENT AMBULATING IN ROOM INDEPENDENTLY. PATIENT WORKED WITH THERAPY TODAY AND ABLE TO AMBULATE IN HALLS. PLAN FOR PATIENT TO TRANSITION TO INPATIENT PSYCH. COBRA FORMS INITIATED AND COVID SWAB DONE. SITTER AT BEDISE FOR SI.
[2024-11-21 18:32] LABS: SARS-Cov-2 (COVID-19) PCR, MMC NEGATIVE (NEGATIVE)
[2024-11-21 19:52] VITALS: BP 146/77
--- NOTE | 2024-11-22 03:06 | NUR ---
SHIFT SUMMARY PATIENT HAS BEEN RESTING INTERMITTANTLY TONIGHT. HE HAS SOME ANXIETY ABOUT TRANSFERRING TO AN INPATIENT PSYCH FACILITY TOMORROW. PATIENT IS PLEASANT AND COOPERATIVE WITH CARE. HE HAS AMBULATED IN THE HALLWAYS TONIGHT. SAFETY PRECAUTIONS ARE BEING MAINTAINED.
[2024-11-22 06:06] VITALS: BP 166/89
[2024-11-22 07:29] VITALS: BP 177/86
[2024-11-22 07:57] VITALS: BP 177/86
[2024-11-22] MEDS ORDERED: MetFORMIN HCl 500 mg PO SCH (09:00)
[2024-11-22 09:35] VITALS: BP 177/86
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
== END 2024-11-22 12:15 | disposition short-term general hospital (02) | DRG 917 ==
LOC: ER 00:13 → MEDS 02:17 → ICUE 02:17 → MEDS 11-18 21:55
PROVIDERS: Internal Medicine; Internal Medicine Critical Care Medicine; Student in an Organized Health Care Education/Training Program; ADMIT Student in an Organized Health Care Education/Training Program
DX: T44.7X2A Poisoning by beta-adrenoreceptor antagonists, intentional self-harm, initial encounter (principal); G92.8 Other toxic encephalopathy; J69.0 Pneumonitis due to inhalation of food and vomit; J96.01 Acute respiratory failure with hypoxia; Z68.43 Body mass index [BMI] 50.0-59.9, adult; F60.3 Borderline personality disorder; E11.9 Type 2 diabetes mellitus without complications; F32.A Depression, unspecified; E66.01 Morbid (severe) obesity due to excess calories; Z88.0 Allergy status to penicillin; Z79.899 Other long term (current) drug therapy; Z79.84 Long term (current) use of oral hypoglycemic drugs
CPT/HCPCS: 31500; 36415; 51702; 71045; 80047; 80053; 80069; 80320; 81001; 82803; 82947; 83735; 85014; 85025; 85027; 87070; 87147; 87205; 93005; 93010; 94002; 94003; 94640; 94660; 94664; 94760; 94762; 97110; 97116; 97162; 97530; 99285-25; A9270; C1751; G0480; J0165; J0360; J0696; J1630; J1650; J2250; J2405; J2470; J2704; J3010; J7050; J7120; U0002